=== PATIENT | female | born 1995 | race African-American/Black ===

== ENCOUNTER 2020-12-12 14:40 | Emergency (ER) | payer MEDICAID ==
[~2020-12-12] VITALS: Ht 167.6 cm; Wt 73.0 kg
[2020-12-12] MEDS ORDERED: LORAZEPAM 2MG/ML CPJ IV STA (14:54)
[2020-12-12] MEDS ORDERED: SODIUM CHLORIDE 0.9% 1,000 ML IV ONE (15:00)
[2020-12-12 15:29] LABS: BASOPHILS % 0.6 % (0.0-2.0); EOSINOPHILS % 0.7 % (0.0-5.0); HEMATOCRIT. 41.7 % (36.0-48.0); HEMOGLOBIN. 13.5 g/dL (12.0-16.0); LYMPHOCYTES % 19.3 % (20.0-50.0); MEAN CORPUSCULAR HEMOGLOBIN 30.2 pg (28.0-32.0); MEAN CORPUSCULAR VOLUME 93.3 fL (81.0-99.0); MEAN PLATELET VOLUME 8.5 fl (7.4-10.4); MONOCYTES % 6.7 % (2.0-8.0); NEUTROPHILS % 72.7 % (40.0-76.0); PLATELET 318 x1000/uL (130-400); RED BLOOD CELL COUNT 4.46 mill/uL (4.2-5.4); RED CELL DISTRIBUTION WIDTH 13.5 % (11.6-14.6)
[2020-12-12 15:32] LABS: CHLORIDE 105 mEq/L (98-107)
[2020-12-12 15:36] LABS: ETHANOL BLOOD < 10 mg/dL
[2020-12-12 15:43] LABS: CLARITY URINE CLEAR (CLEAR); COLOR URINE YELLOW (YELLOW); KETONES URINE TRACE (NEGATIVE); LEUKOCYTE ESTERASE URINE 3+ (NEGATIVE); NITRITE URINE NEGATIVE (NEGATIVE); OCCULT BLOOD URINE NEGATIVE (NEGATIVE); PH URINE 7.5 (4.5-8.0); PROTEIN URINE NEGATIVE (NEGATIVE); UROBILINOGEN URINE 0.2 E.U./dL (0.2-1.0)
[2020-12-12 15:52] LABS: HCG SCREEN NEGATIVE
[2020-12-12 15:59] LABS: METHADONE URINE SCREEN NEGATIVE (NEGATIVE)
[2020-12-12 16:00] LABS: *AMPHETAMINES SCREEN URINE NEGATIVE (NEGATIVE); *BARBITURATES SCREEN URINE NEGATIVE (NEGATIVE); *BENZODIAZEPINES SCREEN URINE NEGATIVE (NEGATIVE); OPIATES URINE SCREEN NEGATIVE (NEGATIVE); PHENCYCLIDINE URINE SCREEN NEGATIVE (NEGATIVE)
[2020-12-12 16:04] LABS: *COCAINE SCREEN URINE PRESUMTIVE POSITIVE (NEGATIVE); CANNABINOID URINE SCREEN PRESUMTIVE POSITIVE (NEGATIVE)
[2020-12-12] MEDS ORDERED: AMOX-494 MT (16:07)
[2020-12-12 16:40] VITALS: BP 130/70
== END 2020-12-12 16:40 | disposition home or self-care (01) ==
LOC: ER 15:05
DX: T40.5X1A Poisoning by cocaine, accidental (unintentional), initial encounter (principal); N30.90 Cystitis, unspecified without hematuria; R11.2 Nausea with vomiting, unspecified; Y92.9 Unspecified place or not applicable
CPT/HCPCS: 36415; 80053; 80305; 80307; 80320; 80329; 81003; 81025; 84703; 85025; 93005; 96361; 96374; 99284; J2060; Z7610; G0480

== ENCOUNTER 2020-12-22 16:06 | Emergency (ER) | payer MEDICAID ==
[~2020-12-22] VITALS: Ht 170.2 cm; Wt 75.0 kg
[~2020-12-22 16:06] MED LIST: AMOX-494 MT
[2020-12-22] MEDS ORDERED: MAGNESIUM/ALUMINUM HYDROXIDE/SIMETHICONE 30ML UDC PO STA (16:46)
[2020-12-22] MEDS ORDERED: ONDANSETRON HCL 4MG/2ML INJ IV STA (16:46)
[2020-12-22] MEDS ORDERED: PANTOPRAZOLE SODIUM 40 MG/VIAL IV STA (16:46)
[2020-12-22] MEDS ORDERED: SODIUM CHLORIDE 0.9% 1,000 ML IV ONE (17:00)
[2020-12-22 17:04] LABS: BASOPHILS % 0.5 % (0.0-2.0); HEMATOCRIT. 39.5 % (36.0-48.0); HEMOGLOBIN. 13.3 g/dL (12.0-16.0); LYMPHOCYTES % 20.8 % (20.0-50.0); MEAN PLATELET VOLUME 8.2 fl (7.4-10.4); MONOCYTES % 7.3 % (2.0-8.0); NEUTROPHILS % 71.4 % (40.0-76.0); PLATELET 323 x1000/uL (130-400); RED BLOOD CELL COUNT 4.29 mill/uL (4.2-5.4); RED CELL DISTRIBUTION WIDTH 13.2 % (11.6-14.6)
[2020-12-22 17:10] LABS: CHLORIDE 106 mEq/L (98-107)
[2020-12-22 17:38] LABS: HCG SCREEN NEGATIVE
[2020-12-22] MEDS ORDERED: PROT20 MT (17:51)
[2020-12-22] MEDS ORDERED: ONDA4TAB5 MT (17:51)
[2020-12-22] MEDS ORDERED: LACTATED RINGERS 1,000 ML IV SCH (18:00)
[2020-12-22] MEDS ORDERED: MORPHINE SULFATE 4 MG/ML CPJ (NOT FOR IM USE) IV ONE (19:15)
[2020-12-22 20:10] VITALS: BP 114/72
[2020-12-22 20:14] LABS: CLARITY URINE TURBID (CLEAR); COLOR URINE YELLOW (YELLOW); KETONES URINE 4+ (NEGATIVE); LEUKOCYTE ESTERASE URINE 3+ (NEGATIVE); NITRITE URINE NEGATIVE (NEGATIVE); OCCULT BLOOD URINE 2+ (NEGATIVE); PH URINE 5.5 (4.5-8.0); PROTEIN URINE 1+ (NEGATIVE); SPECIFIC GRAVITY URINE 1.027 (1.005-1.030); UROBILINOGEN URINE 0.2 E.U./dL (0.2-1.0)
[2020-12-22] MEDS ORDERED: ONDANSETRON HCL 4MG/2ML INJ IV ONE (20:30)
== END 2020-12-22 22:18 | disposition home or self-care (01) ==
LOC: ER 16:06
DX: R11.2 Nausea with vomiting, unspecified (principal); I10 Essential (primary) hypertension; K21.9 Gastro-esophageal reflux disease without esophagitis; Z79.899 Other long term (current) drug therapy
CPT/HCPCS: 36415; 73564; 80053; 81003; 83690; 84703; 85025; 85610; 87077; 87086; 96361; 96374; 96375; 96376; 99284; C9113; J2270; J2405; J7030